=== PATIENT | female | born 1985 | race Two or more races ===

== ENCOUNTER 2018-12-16 09:09 | Outpatient (CLI) | payer OTHER | END 2018-12-16 10:48 | disposition home or self-care (01) | LOC: NST 09:09 | DX: Z34.83 Encounter for supervision of other normal pregnancy, third trimester (principal) ==

== ENCOUNTER 2018-12-30 12:02 | Outpatient (CLI) | payer OTHER | END 2018-12-30 12:36 | disposition home or self-care (01) | LOC: NST 12:02 | DX: Z34.83 Encounter for supervision of other normal pregnancy, third trimester (principal) ==

== ENCOUNTER 2019-01-27 12:45 | Outpatient (CLI) | payer OTHER | END 2019-01-27 13:23 | disposition home or self-care (01) | LOC: NST 12:45 | DX: Z34.83 Encounter for supervision of other normal pregnancy, third trimester (principal) ==

== ENCOUNTER 2019-02-10 13:24 | Outpatient (CLI) | payer OTHER ==
[2019-02-10] MEDS ORDERED: PRENATABS RX T1 EACH PO (16:15)
[2019-02-10] MEDS ORDERED: GLYBURID-METFO1 EACH PO (16:51)
== END 2019-02-10 13:48 | disposition home or self-care (01) ==
LOC: NST 13:24
DX: Z34.83 Encounter for supervision of other normal pregnancy, third trimester (principal)

== ENCOUNTER 2019-02-10 16:18 | Inpatient (IN) | payer OTHER ==
[~2019-02-10] VITALS: Ht 157.5 cm; Wt 4.5 kg
[~2019-02-10 16:18] MED LIST: PRENATABS RX T1 EACH PO
[2019-02-10] MEDS ORDERED: GLYBURID-METFO1 EACH PO (16:51)
[2019-02-15] MEDS ORDERED: SYNTROID PO (09:31)
== END 2019-02-18 13:30 | disposition home or self-care (01) | DRG 788 ==
LOC: O/R 02-15 08:43 → OB/GYN 02-15 13:44 → SURG-SUITE 02-15 16:04 → OB/GYN 02-15 16:30
PROVIDERS: ADMIT Obstetrics & Gynecology Maternal & Fetal Medicine
PROC: 4A1HXCZ Monitoring of Products of Conception, Cardiac Rate, External Approach (ICD-10-PCS; 2019-02-15)
PROC: 10D00Z1 Extraction of Products of Conception, Low, Open Approach (ICD-10-PCS; principal; 2019-02-15 14:30)
DX: O82 Encounter for cesarean delivery without indication (principal); O64.8XX0 Obstructed labor due to other malposition and malpresentation, not applicable or unspecified; Z3A.38 38 weeks gestation of pregnancy; Z37.0 Single live birth; Z22.330 Carrier of Group B streptococcus

== ENCOUNTER 2021-07-13 10:11 | Emergency (ER) | payer OTHER ==
[~2021-07-13] VITALS: Ht 157.5 cm; Wt 86.2 kg
[~2021-07-13 10:11] MED LIST changes: +GLYBURID-METFO1 EACH PO; +SYNTROID PO
[2021-07-13] MEDS ORDERED: MAXIMUM D3325 MCG PO (10:22)
== END 2021-07-13 18:45 | disposition home or self-care (01) ==
LOC: ER 10:11
DX: O20.8 Other hemorrhage in early pregnancy (principal); O24.111 Pre-existing type 2 diabetes mellitus, in pregnancy, first trimester; Z3A.01 Less than 8 weeks gestation of pregnancy

== ENCOUNTER 2021-11-27 14:40 | Outpatient (CLI) | payer OTHER ==
[~2021-11-27 14:40] MED LIST changes: +MAXIMUM D3325 MCG PO
== END 2021-11-27 15:14 | disposition home or self-care (01) ==
LOC: NST 14:40
PROVIDERS: ATTEND Obstetrics & Gynecology
DX: Z34.83 Encounter for supervision of other normal pregnancy, third trimester (principal)

== ENCOUNTER 2021-12-04 09:21 | Outpatient (CLI) | payer OTHER | END 2021-12-04 11:41 | disposition home or self-care (01) | LOC: NST 09:21 | PROVIDERS: ATTEND Obstetrics & Gynecology | DX: Z34.82 Encounter for supervision of other normal pregnancy, second trimester (principal) ==

== ENCOUNTER 2021-12-18 10:19 | Outpatient (CLI) | payer OTHER | END 2021-12-18 13:58 | disposition home or self-care (01) | LOC: NST 10:19 | PROVIDERS: ATTEND Obstetrics & Gynecology Maternal & Fetal Medicine | DX: Z34.83 Encounter for supervision of other normal pregnancy, third trimester (principal) ==

== ENCOUNTER 2022-01-02 11:04 | Outpatient (CLI) | payer OTHER | END 2022-01-02 12:21 | disposition home or self-care (01) | LOC: NST 11:04 | PROVIDERS: ATTEND Obstetrics & Gynecology Maternal & Fetal Medicine | DX: Z34.83 Encounter for supervision of other normal pregnancy, third trimester (principal) ==

== ENCOUNTER → 2022-01-14 | Outpatient (CLI) | payer OTHER | END | disposition home or self-care (01) | LOC: NST 14:40 | PROVIDERS: ATTEND Obstetrics & Gynecology Maternal & Fetal Medicine | DX: Z34.83 Encounter for supervision of other normal pregnancy, third trimester (principal) ==

== ENCOUNTER 2022-01-16 09:48 | Outpatient (CLI) | payer OTHER | END 2022-01-16 11:09 | disposition home or self-care (01) | LOC: NST 09:48 | PROVIDERS: ATTEND Obstetrics & Gynecology | DX: Z34.83 Encounter for supervision of other normal pregnancy, third trimester (principal) ==

== ENCOUNTER 2022-01-30 10:03 | Outpatient (CLI) | payer OTHER ==
[2022-02-06] MEDS ORDERED: GLYBURIDE5 MG PO (15:36)
[2022-02-14] MEDS ORDERED: KETO10TA2 PO (09:55)
[2022-02-14] MEDS ORDERED: OXYC1TAB9 PO (09:55)
== END 2022-01-30 11:00 | disposition home or self-care (01) ==
LOC: NST 10:03
PROVIDERS: ATTEND Obstetrics & Gynecology Maternal & Fetal Medicine
DX: Z34.83 Encounter for supervision of other normal pregnancy, third trimester (principal)

== ENCOUNTER 2022-02-06 16:12 | Outpatient (CLI) | payer OTHER ==
[~2022-02-06 16:12] MED LIST changes: +GLYBURIDE5 MG PO
[2022-02-14] MEDS ORDERED: KETO10TA2 PO (09:55)
[2022-02-14] MEDS ORDERED: OXYC1TAB9 PO (09:55)
== END 2022-02-06 17:53 | disposition home or self-care (01) ==
LOC: NST 16:12
PROVIDERS: ATTEND Obstetrics & Gynecology
DX: Z34.83 Encounter for supervision of other normal pregnancy, third trimester (principal)

== ENCOUNTER 2025-05-04 13:26 | Emergency (ER) | payer OTHER ==
[~2025-05-04] VITALS: Ht 157.5 cm; Wt 86.2 kg
[~2025-05-04 13:26] MED LIST changes: +KETO10TA2 PO; +OXYC1TAB9 PO
[2025-05-04] MEDS ORDERED: METFORMIN HCL500 M3 (14:12)
[2025-05-04] MEDS ORDERED: ZESTRIL10 M1 (14:14)
[2025-05-04] MEDS ORDERED: GLYBURIDE2.5 MG (14:14)
[2025-05-04 14:42] LABS: BASO % 0.3 % (0.1-1.2); EOS # 0.07 (0.04-0.54); EOS % 0.8 % (0.7-7.0); LYMPH # 1.39 (1.18-3.74); LYMPH % 15.7 % (19.3-53.1); MEAN PLATELET VOLUME 10.70 fl (9.4-12.4); MONO # 0.43 (0.24-0.82); MONO % 4.9 % (4.7-12.5); NEUT # 6.90 (1.56-6.13); NEUT % 78.0 % (34.0-71.1); RED CELL DISTRIBUTION WIDTH 19.0 % (11.6-14.4)
[2025-05-04 15:02] LABS: BUN CREA RATIO 13.0 (7.0-25.0); CREATININE SERUM 0.76 mg/dL (0.55-1.02); GFR 85.63; GLUCOSE FASTING 190.0 mg/dL (65-100); OSMOLALITY SERUM 282.0 MOSM/KG (275-295)
[2025-05-04 15:44] LABS: URINE APPEARANCE Clear; URINE BILIRRUBIN Negative (NEGATIVE); URINE BLOOD Negative; URINE COLOR Yellow; URINE GLUCOSE Negative (NEGATIVE); URINE KETONE Trace (NEGATIVE); URINE LEUKOCYTE Negative; URINE NITRATE Negative; URINE UROBILINOGEN 1.0 E.U./dl
[2025-05-04 15:48] LABS: URINE BACTERIA 3011.7 uL (0.0-1933); URINE EPITHELIAL CELLS 27.5 uL (0.0-38.8); URINE RBC 31.8 uL (0.0-20.8); URINE WBC 5.3 uL (0.0-23.2)
[2025-05-04 16:03] LABS: URINE CAST 0.29 uL (0.0-1.40); URINE CRYSTALS MODERATE /HPF; URINE MUCUS SCANT; URINE PROTEIN 100 (NEGATIVE)
[2025-05-04] MEDS ORDERED: CIPROFLOXACIN IN 5 % DEXTROSE 400 MG/200 ML PIGGYBAG IV ONE (16:15)
== END 2025-05-04 20:55 | disposition home or self-care (01) ==
LOC: ER 13:26
PROVIDERS: General Practice
DX: R42 Dizziness and giddiness (principal); I10 Essential (primary) hypertension; E11.9 Type 2 diabetes mellitus without complications; Z79.84 Long term (current) use of oral hypoglycemic drugs; Z91.018 Allergy to other foods